=== PATIENT | male | born 1985 | race Caucasian/White ===

== ENCOUNTER 2016-06-11 16:36 | Emergency (ER) | payer SELFPAY ==
[~2016-06-11] VITALS: Ht 172.7 cm; Wt 70.3 kg
[~2016-06-11 16:36] MED LIST: AMOXICILLIN500 MG ORAL; DEBROX15 M1 RIGHT EAR; IBUPROFEN600 MG ORAL; NKM
[2016-06-11 16:49] VITALS: BP 109/74
[2016-06-11] MEDS ORDERED: IBUPROFEN600 MG ORAL (17:09)
[2016-06-11] MEDS ORDERED: AZITHROMYCIN250 MG ORAL (17:09)
[2016-06-11] MEDS ORDERED: Azithromycin 250mg tab ORAL ONE (17:15)
[2016-06-11 17:40] VITALS: BP 111/70
--- NOTE | 2016-06-11 22:27 | Emergency Room Report ---
History of Present Illness General Chief Complaint: Sore Throat Source: Patient Present Illness HPI The patient is a 31-year-old male presenting for sore throat, cough, and subjective fevers for the past 2 days. Pain is described as an 8/10 dull ache the back of the throat and radiates to the right ear. Pain worse with swallowing. He denies any known sick contacts recent travel. He has not tried any medications. He denies any other symptoms including N, V, BARTH, neck pain, rash, abd pain, SOB, CP Allergies: Coded Allergies: No Known Allergies (Unverified , 12/07/15) Patient History Past Medical History: see triage record Pertinent Family History: none Reviewed Nursing Documentation: PMH: Agreed, PSxH: Agreed Nursing Documentation-PMH Past Medical History: No Stated History Review of Systems All Other Systems: negative except mentioned in HPI Physical Exam Vital Signs Date Time Temp Pulse Resp B/P Pulse Ox O2 Delivery O2 Flow Rate FiO2 06/11/16 16:49 98.2 78 16 109/74 97 Room Air Sp02 EP Interpretation: reviewed, normal General Appearance: no apparent distress, alert, GCS 15, non-toxic Head: normocephalic, atraumatic Eyes: bilateral eye PERRL, bilateral eye normal inspection ENT: hearing grossly normal, no angioedema, normal voice, TMs + canals normal, tonsillar swelling, pharyngeal erythema, tonsillar exudate Neck: full range of motion, supple/symm/no masses Respiratory: chest non-tender, lungs clear, normal breath sounds, speaking full sentences Cardiovascular #1: regular rate, rhythm, no edema Gastrointestinal: normal bowel sounds, non tender, soft, non-distended, no guarding, no rebound Musculoskeletal: back normal, gait/station normal, normal range of motion, non- tender Neurologic: alert, oriented x3, responsive, motor strength/tone normal, sensory intact, speech normal Psychiatric: judgement/insight normal, memory normal, mood/affect normal, no suicidal/homicidal ideation Skin: normal color, no rash, warm/dry, well hydrated Lymphatic: adenopathy Medical Decision Making PA Attestation Dr. Clemens is my supervising physician. Patient management was discussed with my supervising physician Diagnostic Impression: Primary Impression: Pharyngitis, acute Qualified Codes: J02.9 - Acute pharyngitis, unspecified ER Course The patient is a 31-year-old male presenting for sore throat, cough, and subjective fevers Differential diagnosis include but not limited to pharyngitis, sinusitis, AOM, bronchitis, PNA Physical exam: Vitals within normal limits. Afebrile. No apparent distress HEENT exam: There is bilateral tonsillar edema, erythema, and exudate. Uvula midline. Moist mucous membranes. There is bilateral cervical lymphadenopathy. Lungs are clear to auscultation bilaterally Skin is warm and dry. No rash The patient will be discharged home with a prescription for azithromycin and is given ER precautions. Patient will followup with primary care Last Vital Signs Date Time Temp Pulse Resp B/P Pulse Ox O2 Delivery O2 Flow Rate FiO2 06/11/16 17:40 98.2 70 14 111/70 98 Room Air Status: improved Disposition: HOME, SELF-CARE Condition: Improved Scripts Ibuprofen* (MOTRIN*) 600 Mg Tablet 600 MG ORAL Q8H Y for For Pain, #30 TAB 0 Refills Prov: AMY CRUM 06/11/16 Azithromycin* (ZITHROMAX*) 250 Mg Tablet 250 MG ORAL DAILY, #4 TAB Prov: AMY CRUM 06/11/16 Referrals: NOT CHOSEN [facility]/,REFERRING (PCP) Patient Instructions: Pharyngitis Additional Instructions: I discussed my findings with the patient. All questions and concerns have been answered. Treatment and medication compliance have been addressed. I advised the patient that they need to follow up with PMD in 3-5 days. Return to ED if pain remains or worsens, cough worsens or remains, you notice blood in your sputum, you notice wheezing, you experience a fever, or if needed for any reason. Patient verbalized understanding of discharge instructions. AMY CRUM Jun 11, 2016 22:27
== END 2016-06-11 17:36 | disposition home or self-care (01) ==
LOC: EMR 17:35
DX: J02.9 Acute pharyngitis, unspecified (principal)
CPT/HCPCS: 99284

== ENCOUNTER 2016-07-06 21:46 | Emergency (ER) | payer BC ==
[~2016-07-06] VITALS: Ht 172.7 cm; Wt 70.3 kg
[~2016-07-06 21:46] MED LIST changes: +AZITHROMYCIN250 MG ORAL
[2016-07-06 22:00] VITALS: BP 112/74
[2016-07-06] MEDS ORDERED: AUGMENTIN 875-1 EAC1 ORAL (22:19)
--- NOTE | 2016-07-06 22:20 | Emergency Room Report ---
History of Present Illness General Chief Complaint: Sore Throat Source: Patient Present Illness HPI Is a 31-year-old male with no significant past medical history. He does get frequent throat infection and tonsillitis. He said he usually get about twice a year. He was a couple weeks ago and treated with azithromycin. He said is not getting better and seemed to be moving from the right to the left now. Worse at night. [place] like his left ear is clogged up. Denies any fever chills denies any nausea vomiting. No other complaint. Pain is 7/10. Allergies: Coded Allergies: No Known Allergies (Unverified , 12/07/15) Patient History Past Medical History: see triage record, old chart reviewed Past Surgical History: other Pertinent Family History: none Social History: Denies: smoking Immunizations: other Reviewed Nursing Documentation: PMH: Agreed, PSxH: Agreed Nursing Documentation-PMH Past Medical History: No Stated History Review of Systems Eye: Denies: blurred vision, eye pain ENT: Reports: throat pain, Denies: ear pain, nose congestion, throat swelling Respiratory: Denies: cough, shortness of breath Cardiovascular: Denies: chest pain, palpitations Gastrointestinal: Denies: abdominal pain, diarrhea, nausea, vomiting Musculoskeletal: Denies: back pain, joint pain Skin: Denies: rash Neurological: Denies: headache, numbness Endocrine: Denies: increased thirst, increased urine Hematologic/Lymphatic: Denies: easy bruising All Other Systems: negative except mentioned in HPI Physical Exam Vital Signs Date Time Temp Pulse Resp B/P Pulse Ox O2 Delivery O2 Flow Rate FiO2 07/06/16 21:48 97.9 74 16 112/74 97 Room Air vitals normal Sp02 EP Interpretation: reviewed, normal General Appearance: well appearing, no apparent distress, alert Head: normocephalic, atraumatic Eyes: bilateral eye EOMI, bilateral eye PERRL ENT: hearing grossly normal, tonsillar swelling, pharyngeal erythema Neck: full range of motion, supple, no meningismus Respiratory: chest non-tender, lungs clear, normal breath sounds Cardiovascular #1: regular rate, rhythm, no murmur Gastrointestinal: normal bowel sounds, non tender, no mass, no organomegaly, no bruit, non-distended Musculoskeletal: back normal, gait/station normal, normal range of motion Psychiatric: mood/affect normal Skin: warm/dry Medical Decision Making Diagnostic Impression: Primary Impression: Pharyngitis, acute Qualified Codes: J02.9 - Acute pharyngitis, unspecified ER Course Patient with tonsillitis/pharyngitis. Most likely viral in nature. We'll switch antibiotic however. No evidence of peritonsillar abscess, retropharyngeal abscess or Manjit angina. No trismus. We'll discharge home with different antibiotics. He may benefit from ENT followup for tonsillectomy. Last Vital Signs Date Time Temp Pulse Resp B/P Pulse Ox O2 Delivery O2 Flow Rate FiO2 07/06/16 21:48 97.9 74 16 112/74 97 Room Air Status: improved Disposition: HOME, SELF-CARE Condition: Stable Scripts Amoxicillin/Potassium Clav 875-125* (AUGMENTIN 875-125 TABLET*) 1 Each Tablet 1 TAB ORAL TWICE A DAY, #14 TAB Prov: TRISTIAN RUVALCABA M.D. 07/06/16 Patient Instructions: Tonsillitis Additional Instructions: Followup with your DrMiguel in 7 days. You may need a referral to see ENT DrMiguel Return if worse. TRISTIAN RUVALCABA M.D. July 06, 2016 22:20
[2016-07-06 22:30] VITALS: BP 112/74
== END 2016-07-06 23:20 | disposition home or self-care (01) ==
LOC: EMR 23:20
DX: J02.9 Acute pharyngitis, unspecified (principal)
CPT/HCPCS: 99283